=== PATIENT | female | born 2000 | race Caucasian/White ===

== ENCOUNTER 2018-02-07 14:47 | Emergency (ER) | payer OTHER ==
--- NOTE | 2018-02-07 15:36 | ED ---
Lower Extremity - HPI Summary HPI Summary: Pt is a 17 y/o F who presents to ED c/o right ankle injury s/p a fall 1 hour ago. She was walking downhill on a cement street and tripped. She braced her fall with her hand and has injured the index finger of her right hand as well. Rates her pain as 8/10 in severity. Denies loss of sensation, numbness, tingling , head injury, LOC, or radiation of the pain. Pt is not taking any medications. - History of Current Complaint Chief Complaint: EDExtremityLower Stated Complaint: RT ANKLE INJURY Time Seen by Provider: 02/07/18 15:32 Hx Obtained From: Patient Mechanism Of Injury: Fall From A Standing Position Onset of Pain: Immediate Onset/Duration: Still Present Severity Initially: Severe Severity Currently: Severe Pain Intensity: 8 Pain Scale Used: 0-10 Numeric Timing: Constant Location: Is Discrete @ - right ankle Aggravating Factor(s): Movement - Allergies/Home Medications Allergies/Adverse Reactions: Allergies Allergy/AdvReac Type Severity Reaction Status Date / Time No Known Allergies Allergy Verified 02/07/18 14:54 PMH/Surg Hx/FS Hx/Imm Hx Endocrine/Hematology History: Denies: Hx Diabetes Cardiovascular History: Denies: Hx Hypertension Infectious Disease History: No Infectious Disease History: Denies: Traveled Outside the [place] in Last 30 Days - Family History Known Family History: Negative: Hypertension - Social History Occupation: Student Alcohol Use: Weekly Substance Use Type: Reports: None Review of Systems Positive: Other - right ankle injury, right index finger injury, NEGATIVE: Head injury Negative: Numbness, Syncope All Other Systems Reviewed And Are Negative: Yes Physical Exam - Summary Physical Exam Summary: Appearance: Well appearing, no pain distress Skin: warm, dry, reflects adequate perfusion Head/face: normal Eyes: EOMI, BRENDON ENT: mucous membranes moist Neck: supple, non-tender Respiratory: CTA, breath sounds present Cardiovascular: RRR, pulses symmetrical Abdomen: non-tender, soft Bowel Sounds: present Musculoskeletal: diffuse swelling and deformity at right ankle, no pain in proximal tibia, good pulses in extremities, tenderness on right index finger, abrasion on ring finger dorsally Neuro: normal, sensory motor intact, A&Ox3 Triage Information Reviewed: Yes Vital Signs On Initial Exam: Initial Vitals Temp Pulse Resp BP Pulse Ox 97.9 F 97 16 122/76 100 02/07/18 14:51 02/07/18 14:51 02/07/18 14:51 02/07/18 14:51 02/07/18 14:51 Vital Signs Reviewed: Yes Procedures - Splinting Right Lower Extremity Location: Right ankle Hand-Made Type: orthoglass Splint: posterior walking Pre-Proc Neuro Vasc Exam: normal Post-Proc Neuro Vasc Exam: normal Diagnostics - Vital Signs Vital Signs Temp Pulse Resp BP Pulse Ox 02/07/18 14:51 97.9 F 97 16 122/76 100 - Laboratory Lab Statement: Any lab studies that have been ordered have been reviewed, and results considered in the medical decision making process. - Radiology Right Index Finger X Ray Radiology Interpretation Completed By: Radiologist - IMPRESSION: NONDISPLACED FRACTURE OF THE BASE OF THE MIDDLE PHALANX OF THE SECOND DIGIT. ED Physician reviewed this report. Right Ankle X Ray Radiology Interpretation Completed By: Radiologist - Impression: Trimalleolar fracture. ED Physician reviewed this report. Lower Extremity Course/Dx - Course Course Of Treatment: Patient presents with injury with deformity and swelling to the right ankle. She is nonweightbearing. There is no pain, swelling at the proximal fibula. Trimalleolar fracture was found on x-ray. Posterior and sugar tong splint (AO) applied with neurovascularly intact foot. X-ray of the finger is been negative. Discussed the case with orthopedist who wishes to see the patient on Friday. Both the patient's parents are physicians and likely will take the patient back to this [facility] for treatment. She was discharged with pain medication on crutches. - Diagnoses Differential Diagnosis/HQI/PQRI: Positive: Fracture (Closed), Sprain, Strain Provider Diagnoses: Trimalleolar fracture of ankle, closed, Contusion of finger of right hand, Abrasion of finger of right hand Discharge - Sign-Out/Discharge Documenting (check all that apply): Patient Departure - Discharge - Discharge Plan Condition: Improved Disposition: HOME Prescriptions: Hydrocodone/Acetaminophen [[place] 5-325 Tablet] 1 each PO Q6H PRN #20 tablet MDD 4 PRN Reason: severe fracture pain Naproxen [Naproxen 500 mg tab] 500 mg PO BID PRN #12 tablet.dr PARKINSON Reason: Pain Patient Education Materials: Ankle Fracture (ED) Referrals: [facility] - Nigel RENEE [Primary Care Provider] - Juancho Nogueira MD [Medical Doctor] - Additional Instructions: ice, elevate. Non-weight bearing. Follow up with orthopedics on Friday. You will need surgery for this injury. Return if worse, new symptoms or other concerns. - Billing Disposition and Condition Condition: IMPROVED Disposition: Home - Attestation Statements Document Initiated by Scribe: Yes Documenting Scribe: Chandana Head Provider For Whom Chidi is Documenting (Include Credential): Dr. Rodney Monreal MD Scribe Attestation: I, Chandana Head, scribed for Dr. Rodney Monreal MD on 02/07/18 at 1805. Scribe Documentation Reviewed: Yes Provider Attestation: The documentation as recorded by the scribe, Chandana Head accurately reflects the service I personally performed and the decisions made by me, Dr. Rodney Monreal MD
[2018-02-07] MEDS ORDERED: Ibuprofen TAB* 400 MG PO ONE (15:50)
[2018-02-07] MEDS ORDERED: Morphine INJ** 4 MG/ML 1 ML CARPUJECT IV ONE (15:58)
[2018-02-07] MEDS ORDERED: Ketorolac INJ* 60 MG/2 ML VIAL IM ONE (15:58)
[2018-02-07] MEDS ORDERED: Morphine INJ* 4 MG/ML 1 ML SYRINGE (NEW SYRINGE VERSION) ONE (16:04)
--- NOTE | 2018-02-07 16:51 | RAD ---
HISTORY: injury, deformity, fall, right ankle injury COMPARISONS: None VIEWS: 2 , Frontal and lateral views of the right ankle FINDINGS: BONE DENSITY: Normal. BONES: There is a comminuted oblique fracture through the distal fibula. There is a nondisplaced fracture through the posterior distal tibia. There is a minimally displaced fracture through the medial malleolus. JOINTS: There is no arthropathy. ALIGNMENT: There is no dislocation. SOFT TISSUES: There is circumferential soft tissue swelling. OTHER FINDINGS: None. IMPRESSION: TRIMALLEOLAR FRACTURE
--- NOTE | 2018-02-07 16:51 | RAD ---
HISTORY: injury, fall COMPARISONS: None VIEWS: 3 , Frontal, lateral, and oblique views of the second digit of the right hand FINDINGS: BONE DENSITY: Normal. BONES: There is a nondisplaced fracture through the base of the middle phalanx of the second digit along the volar plate with articular extension. JOINTS: There is no arthropathy. ALIGNMENT: There is no dislocation. SOFT TISSUES: Unremarkable. OTHER FINDINGS: None. IMPRESSION: NONDISPLACED FRACTURE OF THE BASE OF THE MIDDLE PHALANX OF THE SECOND DIGIT.
[2018-02-07 17:29] VITALS: BP 143/91
== END 2018-02-07 17:27 | disposition home or self-care (01) ==
LOC: ED 14:47
DX: S82.851A Displaced trimalleolar fracture of right lower leg, initial encounter for closed fracture (principal); S60.410A Abrasion of right index finger, initial encounter; S60.021A Contusion of right index finger without damage to nail, initial encounter; W18.09XA Striking against other object with subsequent fall, initial encounter; Y92.9 Unspecified place or not applicable; Y92.488 Other paved roadways as the place of occurrence of the external cause
CPT/HCPCS: 29515; 73140; 96372; 96374; 99282; A9270-GY; J1885; J2270